=== PATIENT | female | born 1995 | race Caucasian/White ===

== ENCOUNTER 2024-11-07 23:01 | Emergency (ER) | payer OTHER ==
[~2024-11-07] VITALS: Ht 162.6 cm; Wt 68.0 kg
[2024-11-07] MEDS ORDERED: ACETAMINOPHEN 325 MG TABLET ONE (23:49)
[2024-11-07] MEDS: ACETAMINOPHEN 325 MG TABLET PO ONE (23:52)
[2024-11-08 00:04] LABS: *URINE HCG, QUAL NEGATIVE (NEGATIVE)
[2024-11-08] MEDS ORDERED: LIDOCAINE HCL 2% 20 ML VIAL ONE (00:05)
[2024-11-08] MEDS: LIDOCAINE HCL 2% 20 ML VIAL IJ ONE (00:11)
[2024-11-08] MEDS ORDERED: TDAP DIPH,PERTUSS,TET VAC/PF 0.5 ML DISP.SYRIN IM ONE (00:28)
[2024-11-08] MEDS: TDAP DIPH,PERTUSS,TET VAC/PF 0.5 ML DISP.SYRIN IM ONE (00:30)
[2024-11-08] MEDS ORDERED: CEPH500T PO (00:33)
[2024-11-08 00:55] VITALS: BP 122/66; TEMP 98.1; O2SAT 97
== END 2024-11-08 01:00 | disposition home or self-care (01) ==
LOC: ER 23:07
DX: S91.311A Laceration without foreign body, right foot, initial encounter (principal); W26.8XXA Contact with other sharp object(s), not elsewhere classified, initial encounter; Y93.39 Activity, other involving climbing, rappelling and jumping off; Y92.89 Other specified places as the place of occurrence of the external cause; Y99.8 Other external cause status
CPT/HCPCS: 12002; 73630; 84703; 90471; 90715; 99284; J3490; A4606; A4663